=== PATIENT | female | born 1990 | race Caucasian/White ===

== ENCOUNTER 2017-03-15 13:35 | Inpatient (IN) | payer OTHER ==
[2017-03-15] MEDS ORDERED: Terbutaline 1 MG/ML SDV SUBCUT PRN (14:16)
[2017-03-15] MEDS ORDERED: Nalbuphine 10 MG/1 ML Vial IVPUSH PRN (14:18)
[2017-03-15] MEDS ORDERED: Butorphanol 1 MG/ML SDV IVPUSH PRN (14:18)
[2017-03-15] MEDS ORDERED: Sodium Chloride 0.9% 10 ML Syringe FLUSH PRN (14:18)
[2017-03-15] MEDS ORDERED: Misoprostol 200 MCG Tab PO PRN (14:18)
[2017-03-15] MEDS ORDERED: Methylergonovine 0.2 MG/1 ML Amp IM PRN (14:18)
[2017-03-15] MEDS ORDERED: Sodium Chloride 0.9% 2.5 ML Syringe FLUSH PRN (14:18)
[2017-03-15] MEDS ORDERED: Lidocaine 1% 50 ML MDV INJECT PRN (14:18)
[2017-03-15] MEDS ORDERED: Water For Irrigation,Sterile 1,000 ML Container IRR PRN (14:18)
[2017-03-15] MEDS ORDERED: Carboprost Tromethamine 250 MCG/1 ML Amp IM PRN (14:18)
[2017-03-15] MEDS ORDERED: Misoprostol 25 MCG (1/4 of 100 MCG) Tab VAG SCH (14:30)
[2017-03-15] MEDS ORDERED: Oxytocin/0.9 % Sodium Chloride 30 UNIT/500 ML BAG IV SCH ×2 (14:30)
[2017-03-15] MEDS: Lactated Ringers 1,000 ML IV SCH ×3 (14:35→21:57)
[2017-03-15] MEDS: Misoprostol 25 MCG (1/4 of 100 MCG) Tab VAG PRN ×2 (15:23→19:43)
[2017-03-15] MEDS ORDERED: Ropivacaine 0.2% 2 MG/ML 20 ML SDV ONE (21:26)
[2017-03-15] MEDS ORDERED: Ropivacaine HCl/PF 100 ML ONE (21:27)
[2017-03-15] MEDS ORDERED: fentaNYL 100 MCG/2 ML SDV ONE (21:28)
--- NOTE | 2017-03-15 22:57 | PCM.PREANE ---
Preanesthetic Assessment - Procedure Proposed Procedure: Continous Labor Epidural - Anesthesia/Transfusion/Family Hx Anesthesia History: Prior Anesthesia Without Reaction Other Type of Anesthesia Reaction Comment: Previous Labor Epidural Family History of Anesthesia Reaction: No Transfusion History: No Prior Transfusion(s) - Physical Assessment Height: 1.73 m Weight: 81.647 kg - Lab Values: Laboratory Last Values WBC 12.02 K/uL (4.0-11.0) H 03/15/17 14:35 RBC 3.94 M/uL (4.30-5.90) L 03/15/17 14:35 Hgb 11.7 g/dL (12.0-16.0) L 03/15/17 14:35 Hct 34.2 % (36.0-46.0) L 03/15/17 14:35 MCV 86.8 fL (80.0-98.0) 03/15/17 14:35 MCH 29.7 pg (27.0-32.0) 03/15/17 14:35 MCHC 34.2 g/dL (31.0-37.0) 03/15/17 14:35 RDW Std Deviation 43.5 fl (28.0-62.0) 03/15/17 14:35 RDW Coeff of Morgan 14 % (11.0-15.0) 03/15/17 14:35 Plt Count 234 K/uL (150-400) 03/15/17 14:35 MPV 10.20 fL (7.40-12.00) 03/15/17 14:35 Nucleated RBC % 0.0 /100WBC 03/15/17 14:35 Nucleated RBCs # 0 K/uL 03/15/17 14:35 Blood Type O POSITIVE 03/15/17 14:35 Antibody Screen NEGATIVE 03/15/17 14:35 - Allergies Allergies/Adverse Reactions: Allergies Allergy/AdvReac Type Severity Reaction Status Date / Time No Known Allergies Allergy Verified 03/15/17 14:13 PreAnesthesia Questionnaire - Past Health History Medical/Surgical History: Denies 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: - CURRENT (IN HOUSE) MEDS Current Meds: Current Medications Butorphanol Tartrate (Stadol) 1 mg IVPUSH Q1H PRN PRN Reason: Pain Carboprost Tromethamine (Hemabate Ds) 250 mcg IM ASDIRECTED PRN PRN Reason: Post Hemorrhage Lactated Ringer's (Ringers, Lactated) 1,000 mls @ 150 mls/hr IV ASDIRECTED CAITLIN Last Admin: 03/15/17 21:57 Dose: 999 mls/hr Oxytocin/Sodium Chloride (Oxytocin 30 Unit/500 Ml-Ns) 30 unit in 500 mls @ 2 mls/hr IV TITRATE CAITLIN; 2 MUNITS/MIN PRN Reason: Protocol Oxytocin/Sodium Chloride (Oxytocin 30 Unit/500 Ml-Ns) 30 unit in 500 mls @ 500 mls/hr IV TITRATE CAITLIN Lidocaine HCl (Xylocaine 1%) 50 ml INJECT .ONCE PRN PRN Reason: Laceration repair Methylergonovine Maleate (Methergine) 0.2 mg IM ASDIRECTED PRN PRN Reason: Post Hemorrhage Misoprostol (Cytotec) 25 mcg VAG .ONCE CAITLIN Misoprostol (Cytotec) 25 mcg VAG Q4H PRN PRN Reason: Cervical Ripening Last Admin: 03/15/17 19:43 Dose: 25 mcg Misoprostol (Cytotec) 200 mcg PO .ONCE PRN PRN Reason: Post Hemorrhage Nalbuphine HCl (Nubain) 10 mg IVPUSH Q1H PRN PRN Reason: Pain (severe 7-10) Sodium Chloride (Saline Flush) 10 ml FLUSH ASDIRECTED PRN PRN Reason: Keep Vein Open Sodium Chloride (Saline Flush) 2.5 ml FLUSH ASDIRECTED PRN PRN Reason: Keep Vein Open Sterile Water (Sterile Water For Irrigation) 1,000 ml IRR ASDIRECTED PRN PRN Reason: delivery Terbutaline Sulfate (Brethine) 0.25 mg SUBCUT ASDIRECTED PRN PRN Reason: Tacysystole Discontinued Medications Fentanyl (Sublimaze) Confirm Administered Dose 100 mcg .ROUTE .STK-MED ONE Stop: 03/15/17 21:29 Ropivacaine (Naropin 0.2%) Confirm Administered Dose 100 mls @ as directed .ROUTE .STK-MED ONE Stop: 03/15/17 21:28 Ropivacaine (Naropin 0.2%) Confirm Administered Dose 20 ml .ROUTE .STK-MED ONE Stop: 03/15/17 21:27 - Pre-Procedure Checklist Chart Reviewed: Yes Consent Signed: Yes Labs Reviewed: Yes VS/FHR Reviewed: Yes Patient Identification Confirmation Method: Reports: Chart Visual (Patient ID'd Chart reviewed), Verbal Parent Pt an Appropriate Candidate for the Planned Anesthesia: Yes Alternatives and Risks of Anesthesia Discussed w Pt/Guardian: Yes Pre-Procedure Checklist Comment: Procedure discussed, risks, benefits, complications, failure possibility as well as spotty block. Patient understands will not be pain free. - Procedure Procedure Start Date: 03/15/17 Procedure Start Time: 21:[address]: Reports: Blood Pressure, Heart Rate, SPO2 Functional IV: Yes Bolus Infused (fluid type and amount): 1000 ml LR Safety Measures: Reports: Patient Identified, Procedure Verified, Site Verified , Procedure Time Out Patient Position: Reports: Sitting Prep: Reports: Other (c) Local Anesthetic: Reports: Intradermal Wheal w Lidocaine 1% (4 ml) Regional Placement Level: Reports: L3-4 Approach: Reports: Midline Technique: Reports: YURI Glass Syringe YURI Needle Depth (cm): 7 cm Parasthesia: Reports: None Fluid Obtained: Reports: None Catheter Depth at Skin (cm): 7 cm (without issues) Test Dose Medication: Reports: Lidocaine 1.5% w Epinephrine 1:200,000 (4 ml) Test Dose Response: Reports: Negative (HR unchanged 72-76) Loading Dose Time: 21:49 Loading Dose Medication: Naropin 7 ml with 100 mcg fentanly over 3 minutes neg asp Loading Dose Patient Position: supine Continuous Infusion Start Time: 21:54 Continuous Infusion Medication: Naropin 0.2% Continuous Infusion Rate: 8cc/hr Continuous Infusion PCS Bolus Option: 6cc/bolus Continuous Infusion Lockout Dose (cc/hr): 24 Patient Position Post Placement: Reports: Supline/JOE Post-procedure Pain Level: 1-2 Good pain control, patient satisified Level Achieved: T 10 VS and FHR Monitored in Unit Post Placement: Yes Procedure End Date: 03/15/17 Procedure End Time: 21:56 Procedure Comment: Tolerated well no problems noted.
--- NOTE | 2017-03-15 23:20 | PCM.SN ---
- Free Text/Narrative Note: Call by OB for Labor epidural on 26y/o gravada 2. Chart reviewed, discussed procedure, risks, benefits, success rate and issues with epidurals. Pt. received epidural with first child and understood procedure and expectations. Questions answered, permit signed and procedure completed without incident. Excellent pain control at last visit with patient @ 23:20
[2017-03-16] MEDS: Lactated Ringers 1,000 ML IV SCH (01:30)
[2017-03-16] MEDS ORDERED: Bupivacaine 0.5% 10 ML SDV ONE (02:10)
[2017-03-16] MEDS ORDERED: Acetaminophen 500 MG Tab PO PRN ×2 (03:20)
[2017-03-16] MEDS ORDERED: Bisacodyl 10 MG Supp RECTAL PRN (03:20)
[2017-03-16] MEDS ORDERED: Lanolin 100% Cream 7 GM Tube TOP PRN (03:20)
[2017-03-16] MEDS ORDERED: oxyCODONE 5 MG Tab PO PRN (03:20)
[2017-03-16] MEDS ORDERED: Docusate Sodium 100 MG Cap PO PRN (03:20)
[2017-03-16] MEDS ORDERED: Ibuprofen 400 MG Tab PO PRN (03:20)
[2017-03-16] MEDS ORDERED: Witch Hazel Medicated Pads 40/Jar TOP PRN (03:20)
[2017-03-16] MEDS ORDERED: Benzocaine/Menthol 20%-0.5% Spray 78 GM Cannister TOP PRN (03:20)
[2017-03-16] MEDS: Ibuprofen 800 MG Tab PO PRN ×3 (04:05→20:12)
--- NOTE | 2017-03-16 04:45 | OR ---
SURGEON: MARLYN PANTOJA DATE OF PROCEDURE: 03/16/2017 PREOP DIAGNOSES: A 26-year-old, G2, P1-0-1-1 at 39 weeks and 5 days for induction of labor secondary to polyhydramnios. POSTOP DIAGNOSIS: Vacuum-assisted vaginal delivery secondary to category 2 heart tracing, possible patient with polyhydramnios. EBL: 300. FINDINGS: Live female delivered at 1:58 a.m, wt 3830g. scores 5 and 8. First-degree laceration that was repaired with 3-0 Monocryl intact perineum after delivery. BRIEF HISTORY: She was a 26-year-old, 2, para 1-0-0-1 patient at 39 weeks and 4 days who was admitted for induction of labor secondary to polyhydramnios. Induction of labor was started with Cytotec. The patient received 2 doses of Cytotec. She made change from 1 cm to 3, 80, -2 at 10:30 a.m. subsequently at 12:45 a.m., the patient was found to be 80, -1 and then she was AROM'd and we noted some blood-tinged fluid, which was scanty. Subsequently, the patient became fully dilated at about 1:33 a.m. The patient was then encouraged to push. With the patient's pushing effort, the deceleration was noted up to 70s with and without contractions. As a result, the patient was counseled about the importance of vacuum-assisted delivery due to category 2fetal heart tracing and the patient accepted. PROCEDURE: With the patient pushing effort, the vacuum was placed at the flexion point. With the maternal pushing effort, the baby's head was delivered with the assistance of the vacuum. Then, the vacuum was removed after the delivery of the head. Then, the shoulders were delivered anterior and posteriorly and the body was delivered. The cord was clamped and cut and the baby was handed over to the nursery nurse where baby was resuscitated. score was 5 and 8. After delivery of the baby, the cord was clamped and cut. The cord blood gases was obtained and cord blood was also obtained. The placenta was then delivered via controlled cord traction. The perineum was inspected and found to have a first-degree perineal laceration which was sutured with 3-0 Monocryl. After suturing, perineum was also inspected again. It was noted to be intact. Pitocin was started at this point after the delivery of the shoulder. The fundus was found to be firm. Hemostasis was noted. All instrument and pad counts were correct x2. Dr. Pantoja was present for the entire procedure. DONNIE YOO /[id number]
--- NOTE | 2017-03-16 09:17 | PCM48HPAN ---
Post Anesthesia Note - EVALUATION WITHIN 48HRS OF ANESTHETIC Vital Signs in Normal Range: Yes Patient Participated in Evaluation: Yes Respiratory Function Stable: Yes Airway Patent: Yes Cardiovascular Function Stable: Yes Hydration Status Stable: Yes Pain Control Satisfactory: Yes Nausea and Vomiting Control Satisfactory: Yes Mental Status Recovered: Yes
[2017-03-16] MEDS ORDERED: Temazepam 15 MG Cap PO ONE (21:00)
[2017-03-17] MEDS: Ibuprofen 800 MG Tab PO PRN (08:02)
--- NOTE | 2017-03-17 09:01 | PCM.PNPP ---
- General Info Date of Service: 03/17/17 Admission Dx/Problem (Free Text): 26yo P2 s/p VAVD , stable Subjective Update: patient seen at bedside , denies any complains Functional Status: Reports: Pain Controlled, Tolerating Diet, Ambulating, Urinating - Review of Systems General: Reports: No Symptoms HEENT: Reports: No Symptoms Pulmonary: Reports: No Symptoms Cardiovascular: Reports: No Symptoms Gastrointestinal: Reports: No Symptoms Genitourinary: Reports: No Symptoms Musculoskeletal: Reports: No Symptoms Skin: Reports: No Symptoms Neurological: Reports: No Symptoms Psychiatric: Reports: No Symptoms - General Info Date of Service: 03/17/17 - Patient Data Vital Signs - Most Recent: Last Vital Signs Temp 36.4 C 03/17/17 08:00 Pulse 79 03/17/17 08:00 Resp 15 03/17/17 08:00 BP 118/70 03/17/17 08:00 Pulse Ox 97 03/17/17 08:00 Weight - Most Recent: 81.647 kg Lab Results - Last 24 Hours: Laboratory Results - last 24 hr 03/17/17 Range/Units 05:32 Hgb 10.7 L (12.0-16.0) g/dL Hct 32.6 L (36.0-46.0) % Med Orders - Current: Current Medications Acetaminophen (Tylenol Extra Strength) 500 mg PO Q4H PRN PRN Reason: Pain Acetaminophen (Tylenol Extra Strength) 1,000 mg PO Q4H PRN PRN Reason: Pain Last Admin: 03/16/17 08:46 Dose: 1,000 mg Benzocaine/Menthol (Dermoplast Pain Relief 20%-0.5% Alva) 78 gm TOP ASDIRECTED PRN PRN Reason: Perineal Comfort Measure Last Admin: 03/16/17 04:04 Dose: 1 canister Bisacodyl (Dulcolax) 10 mg RECTAL .ONCE PRN PRN Reason: Constipation Docusate Sodium (Colace) 100 mg PO BID PRN PRN Reason: Constipation Last Admin: 03/16/17 08:45 Dose: 100 mg Emollient Ointment (Lansinoh Hpa) 0 gm TOP ASDIRECTED PRN PRN Reason: Sore Nipples Last Admin: 03/16/17 04:05 Dose: 1 tube Ibuprofen (Motrin) 400 mg PO Q4H PRN PRN Reason: Pain Ibuprofen (Motrin) 800 mg PO Q6H PRN PRN Reason: Pain Last Admin: 03/17/17 08:02 Dose: 800 mg Oxycodone HCl (Oxycodone) 5 mg PO Q2H PRN PRN Reason: Pain Sodium Chloride (Saline Flush) 10 ml FLUSH ASDIRECTED PRN PRN Reason: Keep Vein Open Sodium Chloride (Saline Flush) 2.5 ml FLUSH ASDIRECTED PRN PRN Reason: Keep Vein Open Witch Molly (Tucks) 1 pad TOP ASDIRECTED PRN PRN Reason: comfort care Last Admin: 03/16/17 04:04 Dose: 1 tub Discontinued Medications Bupivacaine HCl (Sensorcaine-Mpf 0.5%) Confirm Administered Dose 10 ml .ROUTE .STK-MED ONE Stop: 03/16/17 02:11 Butorphanol Tartrate (Stadol) 1 mg IVPUSH Q1H PRN PRN Reason: Pain Carboprost Tromethamine (Hemabate Ds) 250 mcg IM ASDIRECTED PRN PRN Reason: Post Hemorrhage Fentanyl (Sublimaze) Confirm Administered Dose 100 mcg .ROUTE .STK-MED ONE Stop: 03/15/17 21:29 Lactated Ringer's (Ringers, Lactated) 1,000 mls @ 150 mls/hr IV ASDIRECTED CAITLIN Last Admin: 03/16/17 01:30 Dose: 999 mls/hr Oxytocin/Sodium Chloride (Oxytocin 30 Unit/500 Ml-Ns) 30 unit in 500 mls @ 2 mls/hr IV TITRATE CAITLIN; 2 MUNITS/MIN PRN Reason: Protocol Oxytocin/Sodium Chloride (Oxytocin 30 Unit/500 Ml-Ns) 30 unit in 500 mls @ 500 mls/hr IV TITRATE CAITLIN Last Admin: 03/16/17 01:59 Dose: 500 mls/hr Ropivacaine (Naropin 0.2%) Confirm Administered Dose 100 mls @ as directed .ROUTE .STK-MED ONE Stop: 03/15/17 21:28 Lidocaine HCl (Xylocaine 1%) 50 ml INJECT .ONCE PRN PRN Reason: Laceration repair Methylergonovine Maleate (Methergine) 0.2 mg IM ASDIRECTED PRN PRN Reason: Post Hemorrhage Misoprostol (Cytotec) 25 mcg VAG .ONCE CAITLIN Misoprostol (Cytotec) 25 mcg VAG Q4H PRN PRN Reason: Cervical Ripening Last Admin: 03/15/17 19:43 Dose: 25 mcg Misoprostol (Cytotec) 200 mcg PO .ONCE PRN PRN Reason: Post Hemorrhage Nalbuphine HCl (Nubain) 10 mg IVPUSH Q1H PRN PRN Reason: Pain (severe 7-10) Ropivacaine (Naropin 0.2%) Confirm Administered Dose 20 ml .ROUTE .STK-MED ONE Stop: 03/15/17 21:27 Sterile Water (Sterile Water For Irrigation) 1,000 ml IRR ASDIRECTED PRN PRN Reason: delivery Last Admin: 03/16/17 01:55 Dose: 1,000 ml Temazepam (Restoril) 15 mg PO ONETIME ONE Stop: 03/16/17 21:01 Last Admin: 03/16/17 22:14 Dose: 15 mg Terbutaline Sulfate (Brethine) 0.25 mg SUBCUT ASDIRECTED PRN PRN Reason: Tacysystole - Interaction Infant Disposition, : [place] in Room with Family Infant Interaction: Holding Infant Support Person: - Recovery Exam Fundal Tone: Firm Fundal Level: 1 Fingerbreadths Below Umbilicus Fundal Placement: Midline Lochia Amount: Scant Lochia Color: Rubra/Red Perineum Description: Other (see below) Other Perinuem Description: 1st degree laceration Episiotomy/Laceration: Approximated Bladder Status: Voiding Urinary Elimination: Voided - Exam General: Alert HEENT: Pupils Equal Lungs: Clear to Auscultation Cardiovascular: Regular Rate GI/Abdominal Exam: Normal Bowel Sounds Extremities: Normal Inspection - Problem List & Annotations (1) Vacuum extraction, delivered, current hospitalization SNOMED Code(s): 596149740 Code(s): O66.5 - ATTEMPTED APPLICATION OF VACUUM EXTRACTOR AND [employer]CEPS Status: Acute Current Visit: Yes - Problem List Review Problem List Initiated/Reviewed/Updated: Yes - Assessment Assessment:: 26 yo P2 s/p VAVD , stable PPD1 - Plan Plan:: Pain control as need PNV and Iron D/C home today visit in 6 weeks Call [facility] if fever > 101 Foul smelling discharge Heavy vaginal bleeding Nothing in the vagina for 6 weeks
== END 2017-03-17 10:45 | disposition home or self-care (01) | DRG 775 ==
LOC: MW.OBCHECK 13:35 → MW.OB 13:36 → OBSVTOIN 03-16 01:58
PROVIDERS: ADMIT Obstetrics & Gynecology; ATTEND Obstetrics & Gynecology
PROC: 10D07Z6 Extraction of Products of Conception, Vacuum, Via Natural or Artificial Opening (ICD-10-PCS; principal; 2017-03-16)
PROC: 10907ZC Drainage of Amniotic Fluid, Therapeutic from Products of Conception, Via Natural or Artificial Opening (ICD-10-PCS; 2017-03-16)
PROC: 0HQ9XZZ Repair Perineum Skin, External Approach (ICD-10-PCS; 2017-03-16)
DX: O40.3XX0 Polyhydramnios, third trimester, not applicable or unspecified (principal); O76 Abnormality in fetal heart rate and rhythm complicating labor and delivery; O70.0 First degree perineal laceration during delivery; Z3A.39 39 weeks gestation of pregnancy; Z37.0 Single live birth
CPT/HCPCS: 36415; 59025; 59409; 85014; 85018; 85027; 86850; 86900; 86901; A9270-GY; J2590; J7120